=== PATIENT | female | born 1990 | race African-American/Black ===

== ENCOUNTER 2018-10-22 23:45 | Emergency (ER) | payer MEDICAID ==
[~2018-10-22] VITALS: Ht 172.7 cm; Wt 80.7 kg
[2018-10-22 23:46] VITALS: BP 135/91
--- NOTE | 2018-10-23 00:13 | NUR ---
FIRST CONTACT WITH PT. NINO. Pt speaking in full sentences. Pt is 97% SPO2 on room air. Pt states, "My asthma is acting up, my lungs are really tight. I had a coughing attack earlier. I took Mucinex. It's been going on for three days now." Pt has unlabored respirations equal bilaterally. All safety measures in place. Call light within reach and pt provided warm blanket for comfort measures.
[2018-10-23] MEDS ORDERED: ALBU18HF INH (00:18)
[2018-10-23] MEDS ORDERED: ALBUTEROL SULFATE 2.5 MG/3 ML NPPB ONE (00:30)
[2018-10-23] MEDS ORDERED: ALBUTEROL/IPRATROPIUM 2.5MG/0.5MG, 3 ML NPPB ONE (00:30)
--- NOTE | 2018-10-23 00:44 | NUR ---
Provided report to ZACK Rodrigues. All questions answered. ZACK Rodrigues to assume care of pt.
== END 2018-10-23 01:16 | disposition home or self-care (01) ==
LOC: ED 23:54
DX: J45.41 Moderate persistent asthma with (acute) exacerbation (principal); J02.8 Acute pharyngitis due to other specified organisms; B97.89 Other viral agents as the cause of diseases classified elsewhere
CPT/HCPCS: 93005; 94640; 94664; 99284; J7512; J7613; 99283

== ENCOUNTER 2019-03-21 08:01 | Emergency (ER) | payer MEDICAID ==
[~2019-03-21] VITALS: Ht 172.7 cm; Wt 78.4 kg
[~2019-03-21 08:01] MED LIST: ALBU18HF INH
--- NOTE | 2019-03-21 08:35 | NUR ---
PT TO ROOM FROM TRIAGE, PT WITH C/O LL JAW PAIN. STATES "I WAS FLOSSING MY TEETH THIS MORNING AND I FELT A SHIFT IN MY TOOTH AND ITS BEEN HURTING EVER SINCE" PT STATES SHE IS FROM [place], SHE HAS RESIDED IN [place] SINCE AUGUST BUT DOES NOT HAVE A DENTIST OUT HERE.
[2019-03-21 09:01] VITALS: BP 114/80
--- NOTE | 2019-03-21 09:02 | NUR ---
Patient/Caregiver given discharge instructions and they have confirmed that they understand the instructions. Patient ambulatory with steady gait. Pt left with all personal belongings.
== END 2019-03-21 09:04 | disposition home or self-care (01) ==
LOC: ED 08:30
DX: K02.9 Dental caries, unspecified (principal); K08.89 Other specified disorders of teeth and supporting structures; J45.909 Unspecified asthma, uncomplicated
CPT/HCPCS: 99283